=== PATIENT | female | born 1985 | race Two or more races ===

== ENCOUNTER 2018-04-24 09:41 | Emergency (ER) | payer OTHER ==
[~2018-04-24] VITALS: Ht 152.4 cm; Wt 54.4 kg
[2018-04-24] MEDS ORDERED: FLUORESCEIN SOD(OPTH) 1 MG STRP OP ONE (11:15)
[2018-04-24] MEDS ORDERED: TETRACAINE HCL 0.5% OPTH SOLN 4 ML BTL OP ONE (11:15)
== END 2018-04-24 10:30 | disposition home or self-care (01) ==
LOC: FSED 09:41
DX: S05.02XA Injury of conjunctiva and corneal abrasion without foreign body, left eye, initial encounter (principal); W20.8XXA Other cause of strike by thrown, projected or falling object, initial encounter; Y99.0 Civilian activity done for income or pay
CPT/HCPCS: 99283

== ENCOUNTER → 2020-07-07 | Outpatient (CLI) | payer OTHER ==
[~2020-07-07] MED LIST: COVID-19 VACC, MRNA(MODERNA)/PF 100 MCG/0.5 ML VIAL IM ONE
== END ==
LOC: VACCPMC 08:30
DX: Z23 Encounter for immunization (principal); Z20.822 Contact with and (suspected) exposure to COVID-19

== ENCOUNTER → 2020-08-11 | Outpatient (CLI) | payer OTHER | END | DRG 951 | LOC: VACCPMC 08:30 | DX: Z23 Encounter for immunization (principal); Z20.822 Contact with and (suspected) exposure to COVID-19 | CPT/HCPCS: 0012A; 91301 ==

== ENCOUNTER 2022-04-17 09:40 | Emergency (ER) | payer BC ==
[~2022-04-17] VITALS: Ht 152.4 cm; Wt 54.2 kg
[2022-04-17] MEDS ORDERED: SODIUM CHLORIDE 0.9% 1000ML 1,000 ML IV STA (10:01)
[2022-04-17] MEDS ORDERED: ONDANSETRON HCL INJ 2MG/ML 2ML 2 MG/ML VIAL IV STA ×2 (10:01)
[2022-04-17] MEDS ORDERED: KETOROLAC TROMETHAMINE 30 MG/ML VIAL IV STA (10:01)
[2022-04-17] MEDS ORDERED: SODIUM CHLORIDE 0.9% 1000ML 1,000 ML ONE (10:22)
[2022-04-17] MEDS ORDERED: Morphine 4mg INJECTION 4 MG/ML INJ IV ONE (11:00)
[2022-04-17] MEDS ORDERED: Morphine 4mg INJECTION 4 MG/ML INJ ONE (11:05)
[2022-04-17] MEDS ORDERED: ONDANSETRON ODT4 MG PO (11:27)
[2022-04-17] MEDS ORDERED: FLOMAX0.4 MG PO (11:27)
[2022-04-17] MEDS ORDERED: KETOROLAC TROME10 MG PO (11:27)
[2022-04-17] MEDS ORDERED: ACETAMINOPHEN-1 EAC4 PO (11:27)
== END 2022-04-17 11:53 | disposition home or self-care (01) ==
LOC: FSED 10:46
DX: R11.2 Nausea with vomiting, unspecified (principal); N13.2 Hydronephrosis with renal and ureteral calculous obstruction; R10.32 Left lower quadrant pain
CPT/HCPCS: 74176; 80048; 81003; 81025; 85025; 96374; 96375; 99284; J1885; J2270; J2405; J7030